=== PATIENT | male | born 1985 | race Caucasian/White ===

== ENCOUNTER 2018-05-20 12:55 | Emergency (ER) | payer SELFPAY ==
[~2018-05-20] VITALS: Ht 177.8 cm; Wt 81.7 kg
[2018-05-20] MEDS ORDERED: Monodox100 MG PO (14:22)
== END 2018-05-20 14:39 | disposition home or self-care (01) ==
LOC: ER 12:55
DX: L03.113 Cellulitis of right upper limb (principal); F17.200 Nicotine dependence, unspecified, uncomplicated
CPT/HCPCS: 99283